=== PATIENT | male | born 1985 | race African-American/Black ===

== ENCOUNTER 2018-04-12 10:27 | Emergency (ER) | payer MEDICAID ==
[~2018-04-12] VITALS: Ht 190.5 cm; Wt 204.1 kg
--- NOTE | 2018-04-12 10:29 | NUR ---
PATIENT AMBULATED TO ER BED 2.
[2018-04-12 10:36] VITALS: BP 132/74
--- NOTE | 2018-04-12 10:46 | NUR ---
PT C/O CONGESTION AND DIFFICULTY BREATHING X 1 DAY. 98% ON RA. HEADACHE 5/10, DENIES NVD, FEVERS OR CP. NO OTHER COMPLAINTS. STATES RAN OUT OF ASTHMA MEDS AT HOME. HX-- ASTHMA MEDS--- ALBUTEROL AND ATROVENT
[2018-04-12] MEDS ORDERED: ALBUTEROL SULFATE/IPRATROPIU 3 ML SOL IH ONE (10:55)
[2018-04-12] MEDS ORDERED: cefTRIAXone 1,000 MG in LIDOCAINE 1% ***ER ONLY *** 2.1 ML IM ONE (10:55)
[2018-04-12] MEDS ORDERED: DEXAMETHASONE 10 MG/ML VIAL IM ONE (10:55)
[2018-04-12] MEDS ORDERED: cefTRIAXone 1,000 MG VIAL ONE (11:04)
[2018-04-12] MEDS ORDERED: LIDOCAINE MPF 1% - 5 mL VIAL 5 ML ONE (11:05)
--- NOTE | 2018-04-12 11:07 | NUR ---
PT RECIEVED HHN VIA MASK. PT JOSEPH TX WELL. MINIMAL IMPROVEMENT. PEAK FLOW METER PRE- 220ML POST-335ML
--- NOTE | 2018-04-12 11:10 | NUR ---
RT AT BEDSIDE FOR INTERVENTION.
[2018-04-12 13:38] VITALS: BP 128/78
--- NOTE | 2018-04-12 13:38 | NUR ---
Patient discharged with v/s stable. Written and verbal after care instructions given and explained. Patient alert, oriented and verbalized understanding of instructions. Ambulatory with steady gait. All questions addressed prior to discharge. ID band removed. Patient advised to follow up with PMD. Rx of Albuterol, Promethazine, Prednisone, Azithromycin given. Patient educated on indication of medication including possible reaction and side effects. Opportunity to ask questions provided and answered.
== END 2018-04-12 13:38 | disposition home or self-care (01) ==
LOC: MED 10:27
DX: J32.9 Chronic sinusitis, unspecified (principal); J45.909 Unspecified asthma, uncomplicated; F17.200 Nicotine dependence, unspecified, uncomplicated
CPT/HCPCS: 94640; 96372; 99283; J0696; J1100; J2001; J7620